=== PATIENT | female | born 1955 | race Caucasian/White ===

== ENCOUNTER 2024-10-24 14:19 | Outpatient (CLI) | payer MEDICARE, OTHER, SELFPAY ==
--- NOTE | ~2024-10-24 | DEXA_ITS ---
Bone Density Report Name: RAYMOND LOZANO Age: 69 Sex: Female Ethnicity: White Date of : 1955 Indication: postmenopausal; screening for osteoporosis; height loss; inflammatory bowel disease; Referring Provider: MARYBEL DONNELLY Study: Bone densitometry was performed. Exam Date: October 24, 2024 Accession number: [id number] Bone Density: Region BMD T-score Z-score Classification AP Spine(L1-L4) 0.885 -1.5 0.7 Osteopenia Femoral Neck (Left) 0.720 -1.2 0.7 Osteopenia Total Hip (Left) 0.804 -1.1 0.4 Osteopenia Femoral Neck (Right) 0.752 -0.9 1.0 Normal Total Hip (Right) 0.887 -0.4 1.1 Normal Total Hip Mean 0.846 -0.8 0.8 Normal World Health Organization criteria for BMD impression classify patients as: Normal (T-score at or above -1.0), Osteopenia (T-score between -1.0 and -2.5), or Osteoporosis (T-score at or below -2.5). 10-year Fracture Risk(1): Major Osteoporotic Fracture 9.1% Hip Fracture 1.1% Reported Risk Factors: [place] (), Neck BMD=0.720, BMI=27.2 (1) FRAX(R) Version 3.08. Fracture probability calculated for an untreated patient. Fracture probability may be lower if the patient has received treatment. Clinical Information Provided by Patient: Has the following medical conditions: Inflammatory bowel diseases Patient maximum height was 65.0 Menopause Age: 57 Does not regularly consume dairy products Drinks caffeinated beverages Onset of menses at age 11 Number of children 2 Impression: The patient has low bone mass, based on the Total Spine T-score. The patient has an estimated ten-year risk of hip fracture of 1.1% and an estimated ten-year risk of major fracture of 9.1%, based on the WHO FRAX algorithm. Discussion: BONE DENSITY IS LOW AT ONE OR MORE SKELETAL SITES. This patient's lowest T-score is low at one or more skeletal sites. It meets the World Health Organization's (WHO) criteria for ?low bone mass? (T-score between -1.0 and -2.5). The patient's 10-year risk of fracture as calculated by FRAX is less than the threshold where pharmacological therapy is recommended by the National Osteoporosis Foundation (NOF). However, all treatment decisions require clinical judgment and consideration of individual patient factors, including patient preferences, comorbidities, previous drug use, risk factors not captured in the FRAX model (e.g., frailty, falls, vitamin D deficiency, increased bone turnover, interval significant decline in bone density) and possible under or overestimation of fracture risk by FRAX. The patient should follow a healthful lifestyle (good nutrition with adequate calcium and vitamin D, and appropriate weight-bearing exercise). Follow-Up: Consider repeating this study in 2 to 3 years to reassess this patient's status, or sooner if there is some new clinical indication. Reported by: WILLIAM on 10/24/2024 3:00:00 PM. Reviewed, dictated and finalized at location A.
--- OUTSIDE RECORDS SUMMARY | 2024-10-24 14:27 | XMS_ITS | Encounter Summary ---
Author Organization [facility] Address [address] [facility] [place] [address] Care Team Providers Care Dinkey Engine Firer/Fireman Name Role Phone Chacorta Lobo DO Primary Care Provider Encounter Details Date Type Department Care Team (Late st Contact Info) Description 11/07/2019 Lab Requisition [facility] DermPath Lab [address] [facility], [facility] [place] [address] Laney Corey DO [address] [facility] 3 [place] [address] Social History Tobacco Use Types Packs/Day Years Used Date Smoking Tobacco: Never Assessed Comments Unknown Sex and Gender Information Value Date Recorded Sex Assigned at Not on file Legal Sex Female 6:27 PM HAND LEATHER TRIMMER Gender Identity Not on file Sexual Orientation Not on file documented as of this encounter Plan of Treatment Not on file documented as of this encounter Procedures Procedure Name Priority Date/Time Associated Diagnosis Comments DERMATOPATHOLOGY Routine 08/15/2019 12:0 0 AM CDT documented in this encounter Results * DERMATOPATHOLOGY (08/15/2019 12:00 AM CDT) Case Report Dermatopathology Report Case: [id number] Authorizing Provider: Laney Corey DO Collected: 08/15/2019 12:00 AM Ordering Location: [facility] Care DermPath Lab Received: 11/07/2019 09:37 AM Pathologist: Lilly Steven MD Specimen: Skin, right upper arm 0 12:17 PM CDT DERMATOPATHOLOGY LABORATORY Final Diagnosis Specimen A. SKIN, right upper arm: LICHEN PLANUS-LIKE KERATOSIS (BENIGN LICHENOID KERATOSIS) (L82.1) 0 12:17 PM CDT DERMATOPATHOLOGY LABORATORY at 1217 CDT Clinical History R/O BCC 0 12:17 PM CDT DERMATOPATHOLOGY LABORATORY Gross Description Specimen A: Received is one formalin filled container labeled with the patient's name and designated right upper arm. The specimen consists of a shave biopsy measuring 6x6x1 mm. Jar 0. 0 12:17 PM CDT DERMATOPATHOLOGY LABORATORY Microscopic Description Specimen A. SKIN, right upper arm: The epidermis is mildly acanthotic. There is a lichenoid infiltrate with vacuolar changes of basilar keratinocytes and scattered necrotic keratinocytes. 0 12:17 PM CDT DERMATOPATHOLOGY LABORATORY Comment The epidermis is mildly acanthotic. There is a lichenoid infiltrate with vacuolar changes of basilar keratinocytes and scattered necrotic keratinocytes. 0 12:17 PM CDT DERMATOPATHOLOGY LABORATORY Disclaimer An external and internal positive and negative controls are appropriate for the histochemical, immunohistochemical and immunofluorescence stain(s) in this case (if any), except where stated explicitly. The performance characteristics of the stain(s) cited in this report were developed and its performance characteristic determined by the Dermatopathology Laboratory at [facility], directed by Dr. Anuradha Steven. These tests need not be, and therefore are not, approved by the [place] Food and Drug Administration. The tests are used for clinical purposes. Billing Codes Specimen Charges Stain Charges 10156 1 0 12:17 PM CDT DERMATOPATHOLOGY LABORATORY Embedded Images 0 12:17 PM CDT DERMATOPATHOLOGY LABORATORY Pathology/Cytolog y TISSUE SPECIMEN FROM SKIN / Unknown 08/15/2019 11/07/2019 9:37 AM CDT us Laney Corey DO LAB - PATHOLOGY/CYTOLOGY ORDERABLES Final Result DERMATOPATHOLOGY LABORATORY [facility] - Department of Dermatology [facility] [address], [facility] [place] [phone] documented in this encounter Visit Diagnoses Not on filedocumented in this encounter Care Teams Dinkey Engine Firer/Fireman Relationship Specialty Start Date End Date Chacorta Lobo DO PCP - General 08/23/19 documented as of this encounter
--- OUTSIDE RECORDS SUMMARY | 2024-10-24 14:27 | XMS_ITS | Encounter Summary ---
Author Organization [facility] Address [address] [place] [address] Care Team Providers Care Private Mortgage Banker Safe Name Role Phone Ely Wright BEAD PREPARER Primary Care Provider Unavaila Criselda Mckeon BEAD PREPARER Primary Care Provider [phone] Whitney Redd BEAD PREPARER Primary Care Provider [phone] Clinton Mcginnis MD Unavailable [phone] Encounter Details Date Type Department Care Team (Latest Contact Info) Description 09/23/2022 Revel Toucht Message Enc [facility] Medical Group Family Medicine - [address] [address] Ely Wright, BEAD PREPARER endocrenologist referrel Social History Tobacco Use Types Packs/Day Years Used Date Smoking Tobacco: Never Smokeless Tobacco: Never Alcohol Use Standard Drinks/Week Comments Never 0 (1 standard drink = 0.6 oz pur e alcohol) AUDIT-C Answer Date Recorded Frequency of Alcohol Consumption Never 10/30/2018 Average Number of Drinks Not on file 019 Frequency of Binge Drinking Not on file 10/10 PHQ-2 Answer Date Recorded PHQ-2 Score - If the patient scores above 3, please move on to questions 3-9 0 01/14/2022 Comments No Sex and Gender Information Value Date Recorded Sex Assigned at Female 05/04/2024 11:08 AM POWERTRAIN ENGINEER Legal Sex Female 8:01 PM CDT Gender Identity Not on file Sexual Orientation Not on file COVID-19 Exposure Response Date Recorded In the last 10 days, have yo u been in contact with someone who was confirmed or suspected to have Coronavirus/COVID-19? No / Unsure 09/07/2022 12:45 PM CDT documented as of this encounter Functional Status * RETIRED Are you deaf or do you have serious difficulty hearing Answer Date of Assessment Author Status No 11/15/2020 11:02 PM CDT Acti ve * RETIRED Are you blind or do you have serious difficulty seeing, even when wearing glasses? Answer Date of Assessment Author Status No 11/15/2020 11:02 PM CDT Acti ve * Do you have serious difficulty walking or climbing stairs? Answer Date of Assessment Author Status Yes 11/15/2020 11:02 PM CDT Konstantin Sultana RN Active * Do you have difficulty dressing or bathing? Answer Date of Assessment Author Status Yes 11/15/2020 11:02 PM CDT Konstantin Sultana RN Active * Because of a physical, mental, or emotional condition, do you have difficulty doing errands alone such as visiting a doctor's office or shopping? Answer Date of Assessment Author Status No 11/15/2020 11:02 PM CDT Konstantin Sultana RN Active documented as of this encounter Mental Status * Because of a physical, mental, or emotional condition, do you have serious difficulty concentrating, remembering, or making decisions? Answer Entry Date Author Status No 11/15/2020 11:02 PM CDT Konstantin Sultana RN Active documented in this encounter Progress Notes * Joselo Parra MA - 09/23/2022 1:22 PM CDT Sent pt a Aivo message wit [facility] information for Dr. Kirk to call and schedule appt. Advised to call office if any other issues or concerns. documented in this encounter Plan of Treatment Upcoming Encounters Date Type Department Care Team (Late st Contact Info) Description 11/01/2024 10:20 AM CDT Office Visit [facility] Medical Group Family [address] [address] Whitney Redd NP [address] [place] [phone] documented as of this encounter Goals Goal Patient Goal Type Associated Problems Recent Progress Patient-Stated? Author Safety Patient/family will have appropriate support at home upon discharge Krystle Tian, RN documented as of this encounter Visit Diagnoses Not on filedocumented in this encounter Additional Health Concerns Assessment Noted Time PHQ-9 Depression Total Score: 2 12/11/19 1:56 PM CDT documented as of this encounter Care Teams Private Mortgage Banker Safe Relationship Specialty Start Date End Date Ely Wright, BEAD PREPARER PCP - General NURSE PRACTITIONER 01/12/22 09/07/23 Criselda Hyman, BEAD PREPARER [address] [place] [address] PCP - General Nurse Practitioner Family 09/08/2310/09 Whitney Redd NP 1 [place] [address] PCP - General NURSE PRACTITIONER 10/21/23 Clinton Mcginnis MD Three [address] [address] Consulting Physician CLINICAL CARDIAC ELECTROPHYSIOLOGY 02/14/24 documented as of this encounter
--- OUTSIDE RECORDS SUMMARY | 2024-10-24 14:27 | XMS_ITS | Encounter Summary ---
Author Organization [facility] Address [address] [facility] [place] [address] Care Team Providers Care Resawyer Name Role Phone Chacorta Lobo DO Primary Care Provider Encounter Details Date Type Department Care Team (Late st Contact Info) Description 01/30/2019 Lab Requisition [facility] DermPath Lab [address] [facility], [facility] [place] [address] Laney Corey DO [address] [facility] 3 [place] [address] Social History Tobacco Use Types Packs/Day Years Used Date Smoking Tobacco: Never Assessed Comments Unknown Sex and Gender Information Value Date Recorded Sex Assigned at Not on file Legal Sex Female 6:27 PM TECHNOLOGY APPLICATIONS ENGINEER Gender Identity Not on file Sexual Orientation Not on file documented as of this encounter Plan of Treatment Not on file documented as of this encounter Procedures Procedure Name Priority Date/Time Associated Diagnosis Comments DERMATOPATHOLOGY Routine 01/29/2019 12:0 0 AM CDT documented in this encounter Results * DERMATOPATHOLOGY (01/29/2019 12:00 AM CDT) Case Report Dermatopathology Report Case: [id number] Authorizing Provider: Laney Corey DO Collected: 01/29/2019 12:00 AM Ordering Location: [facility] Care DermPath Lab Received: 01/30/2019 12:18 PM Pathologist: Kamryn Gxaiola MD Specimen: Skin, left thigh 9 8:07 PM CDT DERMATOPATHOLOGY LABORATORY Final Diagnosis Specimen A. 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 GA vs IGD vs granuloma vs drug. 9 8:07 PM CDT DERMATOPATHOLOGY LABORATORY Gross Description Specimen A: Received is one formalin filled container labeled with the patient's name and designated left thigh. The specimen consists of a punch measuring 8u7c0ru, bisected. Jar 0. 9 8:07 PM CDT DERMATOPATHOLOGY LABORATORY Microscopic Description Specimen A. SKIN, left thigh: There are lymphocytes around blood vessels and scattered histiocytes dissecting between collagen bundles. Additional deeper sections were obtained and reviewed. 9 8:07 PM CDT DERMATOPATHOLOGY LABORATORY Disclaimer An external and internal positive and negative controls are appropriate for the histochemical, immunohistochemical and immunofluorescence stain(s) in this case (if any), except where stated explicitly. The performance characteristics of the stain(s) cited in this report were developed and its performance characteristic determined by the Dermatopathology Laboratory at [facility], directed by Dr. Anuradha Steven. These tests need not be, and therefore are not, approved by the [place] Food and Drug Administration. The tests are used for clinical purposes. Billing Codes Specimen Charges Stain Charges 42434 1 9 8:07 PM CDT DERMATOPATHOLOGY LABORATORY Embedded Images 9 8:07 PM CDT DERMATOPATHOLOGY LABORATORY Pathology/Cytolog y TISSUE SPECIMEN FROM SKIN / Unknown 01/29/2019 01/30/2019 12:18 PM CDT Laney Corey DO LAB - PATHOLOGY/CYTOLOGY ORDERABLES Final Result DERMATOPATHOLOGY LABORATORY [facility] - Department of Dermatology [address] [place] [address], [address] [place] [address], [facility] [phone] documented in this encounter Visit Diagnoses Not on filedocumented in this encounter Care Teams Resawyer Relationship Specialty Start Date End Date Chacorta Lobo DO PCP - General 08/23/19 documented as of this encounter
--- OUTSIDE RECORDS SUMMARY | 2024-10-24 14:27 | XMS_ITS | Encounter Summary ---
Author Organization [facility] Address [address] [facility] [place] [address] Care Team Providers Care Camera Machinist Name Role Phone Chacorta Lobo DO Primary Care Provider Encounter Details Date Type Department Care Team (Late st Contact Info) Description 02/02/2024 Lab Requisition [facility] - DermPath Lab [address] [facility], [place] [address] Laney Corey DO [address] [facility] 3 [place] [address] Social History Tobacco Use Types Packs/Day Years Used Date Smoking Tobacco: Never Assessed Comments Unknown Sex and Gender Information Value Date Recorded Sex Assigned at Not on file Legal Sex Female 6:27 PM 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 5 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 Gender Identity Not on file Sexual Orientation Not on file documented as of this encounter Plan of Treatment Not on file documented as of this encounter Procedures Procedure Name Priority Date/Time Associated Diagnosis Comments DERMATOPATHOLOGY Routine 02/02/2024 8:30 AM CDT documented in this encounter Results * DERMATOPATHOLOGY (02/02/2024 8:30 AM CDT) Case Report Dermatopathology Report Case: [id number] Authorizing Provider: Laney Corey DO Collected: 02/02/2024 08:30 AM Ordering Location: [facility] - Received: 02/03/2024 06:31 AM DermPath Lab Pathologist: Marlene Varghese MD Specimen: Skin, right mid arm 12:31 PM CDT DERMATOPATHOLOGY LABORATORY Final Diagnosis Specimen A. SKIN, right mid arm: BASAL CELL CARCINOMA (C44.612) NOT PRESENT AT MARGIN DERMAL SCAR (L90.5) 12:31 PM CDT DERMATOPATHOLOGY LABORATORY at 1231 CDT Clinical History BCC Check margins/prior biopsy 12:31 PM CDT DERMATOPATHOLOGY LABORATORY Gross Description Specimen A: Received is one formalin filled container labeled with the patient's name and designated right mid arm. The specimen consists of a non-oriented ellipse of skin measuring 47g89b0 mm. The epidermal surface is unremarkable. The margin is inked green. The 12 o'clock and 6 o'clock tips are submitted in cassette 1. The remainder of the ellipse is serially sectioned and submitted in cassette 2-3. Jar 0. 12:31 PM CDT DERMATOPATHOLOGY LABORATORY Microscopic Description Specimen A. SKIN, right mid arm: Within the dermis there are aggregates of basaloid cells with a high nuclear to cytoplasmic ratio and peripheral palisading. This lesion is not present at the margin of the specimen. There are fibroblasts and collagen bundles oriented parallel to the skin surface with elongated blood vessels, some of which are oriented perpendicular to the skin surface. 12:31 PM CDT DERMATOPATHOLOGY LABORATORY Disclaimer An external and internal positive and negative controls are appropriate for the histochemical, immunohistochemical and immunofluorescence stain(s) in this case (if any), except where stated explicitly. The performance characteristics of the stain(s) cited in this report were developed and its performance characteristic determined by the Dermatopathology Laboratory at [facility], directed by Dr. Anuradha Steven. These tests need not be, and therefore are not, approved by the [place] Food and Drug Administration. The tests are used for clinical purposes. Billing Codes Specimen Charges Stain Charges 72605 1 12:31 PM CDT DERMATOPATHOLOGY LABORATORY Embedded Images 12:31 PM CDT DERMATOPATHOLOGY LABORATORY Pathology/Cytolo gy TISSUE SPECIMEN FROM SKIN / Unknown 02/02/2024 8:30 AM CDT 02/03/2024 6:31 AM CDT us Laney Corey DO LAB - PATHOLOGY/CYTOLOGY ORDERABLES Final Result DERMATOPATHOLOGY LABORATORY [facility] - Department of Dermatology [facility] Specialized Medicine [facility] [facility], 3rd Floor [address] [phone] documented in this encounter Visit Diagnoses Not on filedocumented in this encounter Care Teams Camera Machinist Relationship Specialty Start Date End Date Chacorta Lobo DO PCP - General 08/23/19 documented as of this encounter
--- OUTSIDE RECORDS SUMMARY | 2024-10-24 14:27 | XMS_ITS | Encounter Summary ---
Author Organization [facility] Address [address] [place] [address] Care Team Providers Care Radiator Core Tester Name Role Phone Ely Wright PROPERTY ADMINISTRATOR Primary Care Provider Unavaila Criselda Mckeon PROPERTY ADMINISTRATOR Primary Care Provider [phone] Redd PROPERTY ADMINISTRATOR Primary Care Provider [phone] Clinton Mcginnis MD Unavailable [phone] Encounter Details Date Type Department Care Team (Late st Contact Info) Description 03/17/2022 BOOM! Entertainmentt Message Enc [facility] Medical Group Family Medicine [address] [address] Ely Wright NP cold/ Social History Tobacco Use Types Packs/Day Years [...] Sex Assigned at Female 05/04/2024 11:08 AM BILL OF LADING CLERK Legal Sex Female 8:01 PM CDT Gender Identity Not on file Sexual Orientation Not on file COVID-19 Exposure Response Date Recorded In the last 10 days, have yo u been in contact with someone who was confirmed or suspected to have Coronavirus/COVID-19? No / Unsure 03/19/2022 9:48 AM BILL OF LADING CLERK documented as of this encounter Functional Status [...] documented in this encounter Progress Notes * oJselo Parra MA - 03/19/2022 10:57 AM CST Pt was seen on a video visit today 03/19/22 with Ely. OF LADING CLERK documented in this encounter Plan of Treatment Upcoming Encounters Date Type Department Care Team (Late st Contact Info) Description 11/01/2024 10:20 AM CDT Office Visit [facility] Medical Group Family Medicine - [place] [address] [place] [phone] [place] [address] documented as of this encounter Goals Goal Patient Goal Type Associated Problems Recent Progress Patient-Stated? Author Safety Patient/family will have appropriate support at home upon discharge Krystle Tian RN documented as of this encounter Visit Diagnoses Not on filedocumented in this encounter Additional Health Concerns Assessment Noted Time PHQ-9 Depression Total Score: 2 12/11/19 22 1:56 PM CDT documented as of this encounter Care Teams Radiator Core Tester Relationship Specialty Start Date End Date Ely Wright, PROPERTY ADMINISTRATOR PCP - General NURSE PRACTITIONER 01/12/22 09/07/23 Criselda Hyman, PROPERTY ADMINISTRATOR [address] [place], [place] [phone] PCP - General Nurse Practitioner Family 09/08/2310/09 Whitney Redd NP 1 [place], [place] [phone] PCP - General NURSE PRACTITIONER 10/21/23 Clinton Mcginnis MD Three [facility] [address] [place], [place] [phone] Consulting Physician CLINICAL CARDIAC ELECTROPHYSIOLOGY 02/14/24 documented as of this encounter
--- OUTSIDE RECORDS SUMMARY | 2024-10-24 14:27 | XMS_ITS | Clinical Summary ---
Author Organization [facility] Address [address] [place] [phone] Care Team Providers Care Polysomnography Technologist Name Role Phone Doug Tamez MD Primary Care Provider + Allergies Active Allergy Reactions Criticality Noted Date Comments Alcohol Diarrhea,Stomach upset Low 11/15/2020 RED wine, pt reports the tannins cause this Chocolate Diarrhea,Stomach upset,Swelling Medium 05/14/2013 Tongue and hand swelling Lactase Diarrhea,Stomach upset Low 11/27/2018 per [facility] Lactuca Virosa Nausea And Vomiting Low 11/15/2020 Magnesium Diarrhea High 01/04/2019 Magnesium Aspartate Diarrhea Low 01/04/2019 Shellfish Stomach upset Low 05/14/2013 Tilactase Diarrhea,Stomach upset Low 11/27/2018 Wild Lettuce Unknown Low 11/19/2020 Medications loratadine (CLARITIN) 10 mg tablet 1 Active triamcinolone (KENALOG) 0.1 % cream APPLY CREAM EXTERNALLY TWICE DAILY TO CHEST AND LEGS 1 Active Synthroid 125 mcg tablet Take 1 tablet (125 mcg total) by mouth early intervention specialist before breakfast 1 Active Additional Information Patient not taking.Reported on 08/06/[address] (PROTONIX) 40 mg EC tablet Take 1 tablet (40 mg total) by mouth daily 1 Active tacrolimus (PROTOPIC) 0.1 % ointment 1 Active thiamine (VITAMIN B-1) 100 mg tablet 1 Active thiamine (VITAMIN B1) 100 mg tablet 1 tablet (100 mg total) 1 Active Synthroid 100 mcg tablet 3 Active doxycycline 100 mg tablet Take 1 tablet/capsule (100 mg total) by mouth 2 (two) times a day 3 Active cyanocobalamin (Vitamin B-12) 1,000 mcg tablet Take 1 tablet (1,000 mcg total) by mouth daily Active butalbital-aspi rin-caffeine (FIORINAL) 50-325-40 mg capsule TAKE 1 CAPSULE BY MOUTH EVERY 6 HOURS NEEDED FOR HEADACHE 3 Active amLODIPine (NORVASC) 5 mg tablet 3 Active vitamin E 100 unit capsule Take 1 capsule (100 Units total) by mouth daily Active amLODIPine (NORVASC) 10 mg tablet 4 Active Synthroid 75 mcg tablet 4 Active Synthroid 88 mcg tablet 4 Active topiramate (TOPAMAX) 100 mg tabletIndicatio ns:Migraine Prevention Take 0.5 tablets (50 mg total) by mouth daily AND 1 tablet (100 mg total) nightly. 135 tablet 3 5 08/07/19 26 Active ZOLMitriptan (ZOMIG) 5 mg tabletIndicatio ns:Migraine Take 1 tablet (5 mg total) by mouth daily as needed for migraine 9 tablet 11 5 Active meclizine (ANTIVERT) 25 mg tabletIndicatio ns:Vertigo Take 1 tablet (25 mg total) by mouth 3 (three) times a day as needed for dizziness 30 tablet 5 Active Active Problems Problem Noted Date Diagnosed Date Status post placement of implantable loop record er 09/09/2022 Overview (08/17/2023): BHAVIK CHAMBERLAIN IMPLANTED 09/08/22 FOR SYNCOPE Syncope and collapse 09/09/2022 Overview (08/17/2023): BHAVIK CHAMBERLAIN IMPLANTED 09/08/22 FOR SYNCOPE 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 for migraine prophylaxis and zolmitriptan 5 mg b.i.d. p.r.n. for abortive breakthrough with good tolerability and success. Both medications have been renewed as presently prescribed. She will follow-up in neurology clinic in a year. Assessment & Plan (10/23/2020 10:15 AM CDT): Patient continues on topiramate for migraine prophylaxis and zolmitriptan for abortive breakthrough. This regimen seems to be working well for her. She is not in need of refill of medication at this time. Assessment & Plan (05/13/2020 2:34 PM VENDOR QUALITY SUPERVISOR): Patient is a former patient of [facility] being treated for migraine without aura. She is on migraine prophylaxis with amitriptyline and topiramate. She uses zolmitriptan 5 mg b.i.d. p.r.n. for abortive breakthrough and Fiorinal 1 q.i.d. p.r.n. rescue. This regimen seems to work well for her. I have renewed her medication as previously prescribed and will see her back in 1 year. Elevated blood pressure read ing without diagnosis of hypertension 12/26/2017 Anxiety 01/12/2017 Chronic sinusitis 01/12/2017 Chronic lumbar pain 06/23/2016 Scoliosis 06/23/2016 Granuloma annulare 10/01/2013 Mixed hyperlipidemia 02/26/2013 Foot pain 07/03/2012 Gastroesophageal reflux disease 01/13/2012 Essential hypertriglyceridemia 01/13/2012 Familial lipoprotein lipase deficiency 2 Obesity 01/13/2012 Acquired hypothyroidism 01/11/2012 Near syncope 01/11/2012 Resolved Problems Problem Noted Date Diagnosed Date Resolved Date Parkinsonism 10/23/2020 11/27/2020 Assessment & Plan (02/19/2021 10:22 AM VENDOR QUALITY SUPERVISOR): Patient was hospitalized at [facility] in taken off Sinemet as well as multiple other medications with improvement in gait and resolution of parkinsonian features. 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 Observation for the neurological standpoint would be appropriate. Assessment & Plan (10/23/2020 10:15 AM CDT): Patient presents with several month history of recurrent falls and clinical evidence of parkinsonism manifest as prominent gait festination in increased generalized tone. She has no tremor at this time or bradykinesia. I will place her on a trial of Sinemet 25/100 t.i.d. for her parkinsonian symptoms. I will see her back in 3 months for reassessment. Encounters Date Type Department Care Team Description 08/06/2024 11:00 AM CDT Office Visit [facility] Neurology [address] [place] [phone] Margarita Champion NP Migraine without aura and without status migrainosus, not intractable from Last 3 Months Immunizations Immunization Administration Dates Next Due ZOSTER LIVE 01/12/2015 Surgical History Surgery Date Site/Laterality Comments TONSILLECTOMY GALLBLADDER SURGERY Medical History Medical History Date Comments Depression Hypertension High cholesterol Dysphagia Family History Medical History Relation Name Comments No Known Problems Brother Arthritis Father Heart murmur Father Hypertension Father Arthritis Mother Hypertension Mother Hypothyroidism Mother Relation Name Status Comments Brother Alive Father Mother Social History Tobacco Use Types Packs/Day Years Used Date Smoking Tobacco: Never Smokeless Tobacco: Never Comments Unknown Sex and Gender Information Value Date Recorded Sex Assigned at Not on file Legal Sex Female 8:57 PM VENDOR QUALITY SUPERVISOR Gender Identity Not on file Sexual Orientation Not on file Obstetrics History Last Filed Vital Signs Vital Sign Reading Time Taken Comments Blood Pressure 120/70 08/06/2024 10:52 AM CDT Pulse 78 08/06/2024 10:52 AM CDT Temperature 36.2 C (97.1 F) 08/16/2022 9:08 AM CDT Respiratory Rate 20 08/06/2024 10:52 AM CDT Oxygen Saturation 100% 08/06/2024 10:52 AM CDT Inhaled Oxygen Concentration - - Weight 70.3 kg (155 lb) 08/06/2024 10:52 AM CDT Height 165.1 cm (5' 5) 08/06/2024 10:52 AM CDT Body Mass Index 25.79 08/06/2024 10:52 AM CDT Plan of Treatment Health Maintenance Due Date Last Done Comments Colon Cancer Screening-Colonoscopy 1955 Depression Screening 1955 Hepatitis C Screening 1955 Hepatitis B Screening 02/29/1972 Pneumococcal vaccine 65+ (1 of 1 - PCV) 02/29/2004 Zoster Vaccine (2 of 3) 03/09/2015 01/12/2015 Well Visit 65+ 2019 Fall Risk Assessment 12/01/2021 12/01/2020 Covid-19 Vaccine (2023-2 5 season) 2023 04/02/2021, 09/09/2020, 08/12/2020 Osteoporosis Screening-Bone Density Scan 01/07/2024 01/06/2022 Influenza Vaccine (Season Ended) 2024 Breast Cancer Screening-Mammogram 01/17/2025 01/18/2024, 01/18/2024, 01/06/2022, Additional history exists DTaP/Tdap/Td Vaccine (2 - Td or Tdap) 06/22/2034 06/22/2024, 12/24/[address] [place] [address] MEDICARE FOR LIFE MEDICARE FOR LIFE MEDICARE FOR LIFE Advance Directives For more information, please contact: [phone] * Full Code (Latest Code Status on File) Date Activated Date Inactivated Comments 11/28/2020 7:53 AM 12/01/2020 7:20 PM * Full Code Date Activated Date Inactivated Comments 11/19/2020 9:32 PM 11/28/2020 7:53 AM Care Teams Polysomnography Technologist Relationship Specialty Start Date End Date Doug Tamez MD [address] [place] [address] PCP - General Family Medicine 02/19/21
--- OUTSIDE RECORDS SUMMARY | 2024-10-24 14:27 | XMS_ITS | Encounter Summary ---
Author Organization [facility] Address [address] [place] [address] Care Team Providers Care Child Care Assistant Name Role Phone Chacorta Lobo DO Primary Care Provider Encounter Details Date Type Department Care Team (Late st Contact Info) Description 01/27/2023 Telephone [facility] - Centralized Scheduling [address] [place] [address] Unknown, Provider Social History Tobacco Use Types Packs/Day Years Used Date Smoking Tobacco: Never Assessed Comments Unknown Sex and Gender Information Value Date Recorded Sex Assigned at Not on file Legal Sex Female 6:27 PM ASSIGNMENT DESK EDITOR Gender Identity Not on file Sexual Orientation Not on file documented as of this encounter Miscellaneous Notes * Telephone Encounter - Billy Zambrano - 01/27/2023 3:30 PM CDT [facility] called and states to disregard referral to ENDO. documented in this encounter Plan of Treatment Not on file documented as of this encounter Visit Diagnoses Not on filedocumented in this encounter Care Teams Child Care Assistant Relationship Specialty Start Date End Date Chacorta Lobo DO PCP - General 08/23/19 documented as of this encounter
--- OUTSIDE RECORDS SUMMARY | 2024-10-24 14:27 | XMS_ITS | Referral Summary ---
Author Organization [facility] Address [address] [place] [phone] Care Team Providers Care Simplex Operator Name Role Phone Doug Tamez MD Primary Care Provider + Encounters Date Type Department Care Team Description 08/06/2024 11:00 AM CDT Office Visit [facility] Medical Group Neurology [address] [place] [address] [address] [place] [phone] Margarita Champion NP Migraine without aura and without status migrainosus, not intractable from Last 3 Months Allergies Active Allergy Reactions Criticality Noted Date Comments Alcohol Diarrhea,Stomach upset Low 11/15/2020 RED wine, pt reports the tannins cause this Chocolate Diarrhea,Stomach upset,Swelling Medium 05/14/2013 Tongue and hand swelling Lactase Diarrhea,Stomach upset Low 11/27/2018 per [facility] Lactuca Virosa Nausea And Vomiting Low [...] 1 tablet (125 mcg total) by mouth spiritual counselor before breakfast 1 Active Additional Information Patient [...] implantable loop record er 09/09/2022 Overview (08/17/2023): MDT LNQ22 IMPLANTED 09/08/22 FOR SYNCOPE Syncope and collapse 09/09/2022 Overview (08/17/2023): BHAVIK LNQ22 IMPLANTED 09/08/22 FOR SYNCOPE 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 [...] time. Assessment & Plan (05/13/2020 2:34 PM FISH CHECKER): Patient is a former patient of [facility] being treated for migraine without aura. [...] 11/27/2020 Assessment & Plan (02/19/2021 10:22 AM FISH CHECKER): Patient was hospitalized at [facility] in taken off Sinemet as well as [...] her back in 3 months for reassessment. Immunizations Immunization Administration Dates Next Due ZOSTER LIVE 01/12/2015 Social History Tobacco Use Types Packs/Day Years Used Date Smoking Tobacco: Never Smokeless Tobacco: Never Comments Unknown Sex and Gender Information Value Date Recorded Sex Assigned at Not on file Legal Sex Female 8:57 PM FISH CHECKER Gender Identity Not on file Sexual Orientation Not on file Last Filed Vital Signs Vital Sign Reading [...] 08/06/2024 10:52 AM CDT Plan of Treatment Not on file Insurance MEDICARE FOR LIFE [place] [address] MEDICARE [facility] FOR LIFE Advance Directives For more information, please contact: [phone] * Full Code (Latest Code Status on File) Date Activated Date Inactivated Comments 11/28/2020 7:53 AM 12/01/2020 7:20 PM * Full Code Date Activated Date Inactivated Comments 11/19/2020 9:32 PM 11/28/2020 7:53 AM Care Teams Simplex Operator Relationship Specialty Start Date End Date Doug [place] [address] [place] [address] PCP - General Family Medicine 02/19/21
--- OUTSIDE RECORDS SUMMARY | 2024-10-24 14:27 | XMS_ITS | Encounter Summary ---
Author Organization [facility] Address [address] [facility] [place] [address] Care Team Providers Care Plc Engineer Name Role Phone Chacorta Lobo DO Primary Care Provider Encounter Details Date Type Department Care Team (Late st Contact Info) Description 01/11/2024 Lab Requisition [facility] - DermPath Lab [address] [facility] [place] [phone] Laney Corey DO [address] [facility] [address] [place] [address] Social History Tobacco Use Types Packs/Day Years Used Date Smoking Tobacco: Never Assessed Comments Unknown Sex and Gender Information Value Date Recorded Sex Assigned at Not on file Legal Sex Female 6:27 PM DEMAND GENERATION MANAGER Gender Identity Not on file Sexual Orientation Not on file documented as of this encounter Plan of Treatment Not on file documented as of this encounter Procedures Procedure Name Priority Date/Time Associated Diagnosis Comments DERMATOPATHOLOGY Routine 01/11/2024 10:1 1 AM CDT documented in this encounter Results * DERMATOPATHOLOGY (01/11/2024 10:11 AM CDT) Case Report Dermatopathology Report Case: [id number] Authorizing Provider: Laney Corey DO Collected: 01/11/2024 10:11 AM Ordering Location: [facility] - Received: 01/11/2024 04:19 PM DermPath Lab Pathologist: Sepideh Nelson MD Specimens: A) - Skin, right mid arm B) - Skin, frontal hairline 1:17 PM CDT DERMATOPATHOLOGY LABORATORY Final Diagnosis Specimen A. SKIN, right mid arm: BASAL CELL CARCINOMA, SUPERFICIAL MULTIFOCAL (C44.612) Specimen B. SKIN, frontal hairline: BASAL CELL CARCINOMA, NODULAR TYPE (C44.41) 1:17 PM CDT DERMATOPATHOLOGY LABORATORY at 1317 CDT Clinical History R/o NMSC 1:17 PM CDT DERMATOPATHOLOGY LABORATORY Gross Description Specimen A: Received is one formalin filled container labeled with the patient's name and designated right mid arm. The specimen consists of a shave biopsy measuring 7x6x1 mm. Jar 0. Specimen B: Received is one formalin filled container labeled with the patient's name and designated frontal hairline. The specimen consists of a shave biopsy measuring 5x5x1 mm. Jar 0. 1:17 PM CDT DERMATOPATHOLOGY LABORATORY Microscopic Description Specimen A. SKIN, right mid arm: Attached to the undersurface of the epidermis, there are small aggregates of basaloid cells with a high nuclear to cytoplasmic ratio and peripheral palisading. Specimen B. SKIN, frontal hairline: Within the dermis there are aggregates of basaloid cells with a high nuclear to cytoplasmic ratio and peripheral palisading. 1:17 PM CDT DERMATOPATHOLOGY LABORATORY Disclaimer An external and internal positive and negative controls are appropriate for the histochemical, immunohistochemical and immunofluorescence stain(s) in this case (if any), except where stated explicitly. The performance characteristics of the stain(s) cited in this report were developed and its performance characteristic determined by the Dermatopathology Laboratory at [facility], directed by Dr. Anuradha Steven. These tests need not be, and therefore are not, approved by the [place] Food and Drug Administration. The tests are used for clinical purposes. Billing Codes Specimen Charges Stain Charges 07807 96939 1 1 1:17 PM CDT DERMATOPATHOLOGY LABORATORY Embedded Images 1:17 PM CDT DERMATOPATHOLOGY LABORATORY Pathology/Cytology TISSUE SPECIMEN FROM SKIN / Unknown 01/11/2024 10:11 AM CDT 01/11/2024 4:19 PM CDT Miscellaneous samples (specimen) TISSUE SPECIMEN FROM SKIN / Unknown 01/11/2024 10:11 AM CDT 01/11/2024 4:19 PM CDT us Laney Corey DO LAB - PATHOLOGY/CYTOLOGY ORDERABLES Final Result DERMATOPATHOLOGY LABORATORY [facility] - Department of Dermatology [address] [phone] documented in this encounter Visit Diagnoses Not on filedocumented in this encounter Care Teams Plc Engineer Relationship Specialty Start Date End Date Chacorta Lobo DO PCP - General 08/23/19 documented as of this encounter
--- OUTSIDE RECORDS SUMMARY | 2024-10-24 14:27 | XMS_ITS | Encounter Summary ---
Author Organization [facility] Address [address] [place] [address] Care Team Providers Care Screen Tender Name Role Phone Ely Wright SYSTEM MANAGER Primary Care Provider Unavaila Criselda Mckeon SYSTEM MANAGER Primary Care Provider [phone] Whitney Redd SYSTEM MANAGER Primary Care Provider [phone] Clinton Mcginnis MD Unavailable [phone] Encounter Details Date Type Department Care Team (Late st Contact Info) Description 01/26/2022 Pathfult Message Enc [facility] Medical [facility] Family Medicine [address] [phone] Eyl Wright, DOMINIK nutrinist Social History Tobacco Use Types Packs/Day Years [...] Sex Assigned at Female 05/04/2024 11:08 AM TOOL BUILDER Legal Sex Female 8:01 PM CDT Gender Identity Not on file Sexual Orientation Not on file COVID-19 Exposure Response Date Recorded In the last 10 days, have yo u been in contact with someone who was confirmed or suspected to have Coronavirus/COVID-19? No / Unsure 01/14/2022 12:31 PM CDT documented as of this encounter [...] Date Author Status No 11/15/2020 11:02 PM NITAT Konstantin Sultana RN Active documented in this encounter Progress Notes * Garrick Akers RN - 01/28/2022 12:48 PM CDT FYI * Garrick Akers RN - 01/27/2022 8:02 AM CDT Per the referral center, Dr. Orlando is also listed under nutrition. They have a call to their officeto verify that this is correct. * Garrick Akers RN - 01/27/2022 7:42 AM CDT I'm reaching out to the referral center. I see the cancelled bariatrics referral that was routed toDr. Orlando, but the nutrition one was as well. * Ely Wright NP - 01/26/2022 4:02 PM CDT Yes some how she was put in for bariatrics so I put in for a new referral when I saw her 2 weeks ago. * Garrick Akers RN - 01/26/2022 3:55 PM CDT It looks like pt was referred to Dr. Orlando. 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 Her appt is 02/24/2022. Were you wanting her to see someone different? Thanks! * Ely Wright NP - 01/26/2022 2:03 PM CDT Please check on her hide dyer referral. It does not look like it has bee worked. * Garrick Akers RN - 01/26/2022 11:43 AM CDT Please see note. Looks like the nutrition referral has an appt date attached at 02/24/2022. Thanks documented in this encounter Plan of Treatment Upcoming Encounters Date Type Department Care Team (Late st Contact Info) Description 11/01/2024 10:20 AM CDT Office Visit [facility] Medical Group Family Medicine - [place] [phone] Whitney Redd NP [address] [place] [address] documented as of this encounter Goals Goal Patient Goal Type Associated Problems Recent Progress Patient-Stated? Author Safety Patient/family will have appropriate support at home upon discharge General Krystle Montemayor RN documented as of this encounter Visit Diagnoses Not on filedocumented in this encounter Additional Health Concerns Assessment Noted Time PHQ-9 Depression Total Score: 2 12/11/19 22 1:56 PM CDT documented as of this encounter Care Teams Screen Tender Relationship Specialty Start Date End Date Ely Wright, SYSTEM MANAGER PCP - General NURSE PRACTITIONER 01/12/22 09/07/23 Criselda Hyman, SYSTEM MANAGER [address] [place] [address] PCP - General Nurse Practitioner Family 09/08/2310/09 Whitney Redd NP [address] [place], [place] [phone] PCP - General NURSE PRACTITIONER 10/21/23 Clinton Mcginnis MD [facility] [address] [place], [place] [id number] Consulting Physician CLINICAL CARDIAC ELECTROPHYSIOLOGY 02/14/24 documented as of this encounter
--- OUTSIDE RECORDS SUMMARY | 2024-10-24 14:27 | XMS_ITS | Encounter Summary ---
Author Organization [facility] Address [address] [place] [address] Care Team Providers Care Shoe Repairer Apprentice Name Role Phone Doug Tamez MD Primary Care Provider [phone] Nam Castillo DO Primary Care Provider [phone] Ely Wright PERSONAL FINANCIAL PLANNER Primary Care Provider Unavaila Criselda Mckeon PERSONAL FINANCIAL PLANNER Primary Care Provider [phone] Whitney Redd PERSONAL FINANCIAL PLANNER Primary Care Provider [phone] Clinton Mcginnis MD Unavailable [phone] Encounter Details Date Type Department Care Team (Late st Contact Info) Description 06/02/2021 MyChart Message Enc [facility] Family Medicine - [address] [address] Doug Tamez MD [address] [address] vein study Social History Tobacco Use Types Packs/Day Years Used Date Smoking Tobacco: Never Smokeless Tobacco: Never Alcohol Use Standard Drinks/Week Comments Never 0 (1 standard drink = 0.6 oz pur e alcohol) AUDIT-C Answer Date Recorded Frequency of Alcohol Consumption Never 10/30/2018 Average Number of Drinks Not on file 019 Frequency of Binge Drinking Not on file 10/10 Comments No Sex and Gender Information Value Date Recorded Sex Assigned at Female 05/04/2024 11:08 AM LIBERAL ARTS TEACHER Legal Sex Female 8:01 PM CDT Gender Identity Not on file Sexual Orientation Not on file COVID-19 Exposure Response Date Recorded In the last 10 days, have yo u been in contact with someone who was confirmed or suspected to have Coronavirus/COVID-19? No / Unsure 05/18/2021 12:30 PM LIBERAL ARTS TEACHER documented as of this encounter Functional Status [...] documented in this encounter Progress Notes * Doug Tamez MD - 06/02/2021 1:57 PM CST Can just stop the blood thinner. No need to wean. No need for follow up for this issue unless pain and swelling start again RAL ARTS TEACHER * Alice Goddard MA - 06/02/2021 1:51 PM CST Please advise,thanks RAL ARTS TEACHER documented in this encounter Plan of Treatment Upcoming Encounters Date Type Department Care Team (Late st Contact Info) Description 11/01/2024 10:20 AM CDT Office Visit [facility] Family Medicine - [place] [address] [place] [id number] Whitney Redd, DOMINIK [address] [place] [address] documented as of this encounter Goals Goal Patient Goal Type Associated Problems Recent Progress Patient-Stated? Author Safety Patient/family will have appropriate support at home upon discharge General Krystle Montemayor RN documented as of this encounter Visit Diagnoses Not on filedocumented in this encounter Care Teams Shoe Repairer Apprentice Relationship Specialty Start Date End Date Doug Tamez MD PCP - General FAMILY PRACTICE 08/21/19 10/08/21 Nam Castillo DO PCP - General FAMILY PRACTICE 10/09/21 01/11/22 Ely Wright, PERSONAL FINANCIAL PLANNER PCP - General NURSE PRACTITIONER 01/12/22 09/07/23 Criselda Hyman PERSONAL FINANCIAL PLANNER [address] [place] [address] PCP - General Nurse Practitioner [facility] 09/08/2310/09 Whitney Redd NP [address] [place] [address] PCP - General NURSE PRACTITIONER 10/21/23 Clinton Mcginnis MD Three [facility] [address] [place] [address] Consulting Physician CLINICAL CARDIAC ELECTROPHYSIOLOGY 02/14/24 documented as of this encounter
--- OUTSIDE RECORDS SUMMARY | 2024-10-24 14:27 | XMS_ITS | Encounter Summary ---
Author Organization [facility] Address [address] [place] [address] Care Team Providers Care Breaker Mechanic Name Role Phone Doug Tamez MD Primary Care Provider [phone] Nam Castillo DO Primary Care Provider [phone] Ely Wright MARKETING DATABASE COORDINATOR Primary Care Provider Unavaila Criselda Mckeon MARKETING DATABASE COORDINATOR Primary Care Provider [phone] Whitney Redd MARKETING DATABASE COORDINATOR Primary Care Provider [phone] Clinton Mcginnis MD Unavailable [phone] Encounter Details Date Type Department Care Team (Late st Contact Info) Description 02/20/2020 Prep for Procedure [facility] [place] [address] Pablo Bethea MD [address] [place] [address] Social History Tobacco Use Types Packs/Day Years [...] Sex Assigned at Female 05/04/2024 11:08 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 No / Unsure 02/20/2020 7:23 AM MOTOR AND CONTROLS TESTER documented as of this encounter Plan of Treatment Upcoming Encounters Date Type Department Care Team (Late st Contact Info) Description 11/01/2024 10:20 AM CDT Office Visit [facility] Family Medicine - [place] [address] [place] [address] Whitney Redd NP [address] [place] [address] documented as of this encounter Results * PRE-SURGICAL/PRE-PROCEDURE CORONAVIRUS (COVID 19) (02/17/2020 11:15 AM MOTOR AND CONTROLS TESTER) CORONAVIRUS SARS COV 2 PCR (RESP) NOT DETECTED NOT DETECTED 02/18/2020 3:01 PM MOTOR AND CONTROLS TESTER [employer] [facility] Comment: A Not Detected (negative) test result for this test means that SARS- CoV-2 RNA was not present in the specimen above the limit of detection. A negative result does not rule out the possibility of COVID-19 and should not be used as the sole basis for treatment or patient management decisions. If COVID-19 is still suspected, based on exposure history together with other clinical findings, re-testing should be considered in consultation with public health authorities. Laboratory test results should always be considered in the context of clinical observations and epidemiological data in making a final diagnosis and patient management decisions. Please review the Fact Sheets and FDA authorized labeling available for health care providers and patients using the following websites: https://www.[employer].com/home/Covid-19/HCP/Quest[employer]D/fact- sheet.html https://www.[employer].com/home/Covid-19/Patients/ Quest[employer]D/fact-sheet.html This test has been authorized by the FDA under an Emergency Use Authorization (EUA) for use by authorized laboratories. Due to the current public health emergency, [employer] [facility] [employer]) is receiving a high volume of samples from a wide variety of swabs and media for COVID-19 testing. In order to serve patients during this public health crisis, samples from appropriate clinical sources are being tested. Negative test results derived from specimens received in non-commercially manufactured viral collection and transport media, or in media and sample collection kits not yet authorized by FDA for COVID-19 testing should be cautiously evaluated and the patient potentially subjected to extra precautions such as additional clinical monitoring, including collection of an additional specimen. Methodology: Nucleic Acid Amplification Test (NAAT) includes RT-PCR or TMA Additional information about COVID-19 can be found at the [employer] website: www.PeerPong.WinAd/Covid19. Test performed at [employer] [facility] [employer] [address] [place] [address] Director: ALDA IZQUIERDO DO,MPH FIRST TEST YES 02/17/2020 1:30 PM MOTOR AND CONTROLS TESTER [facility] EMPLOYED IN HEALTHCARE NO 02/17/2020 1:30 PM MOTOR AND CONTROLS TESTER [facility] SYMPTOMATIC DEFINED BY CDC NO 02/17/2020 1:30 PM MOTOR AND CONTROLS TESTER [facility] DATE OF SYMPTOM ONSET UNKNOWN 02/17/2020 1:33 PM MOTOR AND CONTROLS TESTER [facility] HOSPITALIZATION STATUS NO 02/17/2020 1:30 PM MOTOR AND CONTROLS TESTER [facility] PATIENT IN ICU NO 02/17/2020 1:30 PM MOTOR AND CONTROLS TESTER [facility] RESIDENT OF [facility] CARE NO 02/17/2020 1:30 PM MOTOR AND CONTROLS TESTER [facility] UNKNOWN 02/17/2020 1:33 PM MOTOR AND CONTROLS TESTER [facility] PATIENT'S RACE WHITE OR 02/17/2020 1:30 PM MOTOR AND CONTROLS TESTER [facility] ETHNICITY NONHISPANIC 02/17/2020 1:30 PM MOTOR AND CONTROLS TESTER [facility] SOURCE (QST) NASOPHARYNGEAL SWAB 02/17/2020 1:30 PM MOTOR AND CONTROLS TESTER [facility] NASOPHARYNGEAL SWAB / Unknown 02/17/2020 11:15 AM MOTOR AND CONTROLS TESTER us Pablo Bethea MD MICROBIOLOGY - GENERAL FERMIN PARSON Final Result [facility] [address] [place] [address], [employer] [facility] [address] [place] [address], documented in this encounter Visit Diagnoses Diagnosis Preoperative testing- Primary Preoperative examination, unspecified documented in this encounter Care Teams Breaker Mechanic Relationship Specialty Start Date End Date Doug Tamez MD PCP - General FAMILY PRACTICE 08/21/19 10/08/21 Nam Castillo DO PCP - General FAMILY PRACTICE 10/09/21 01/11/22 Ely Wright MARKETING DATABASE COORDINATOR PCP - General NURSE PRACTITIONER 01/12/22 09/07/23 Criselda Hyman, DOMINIK [address] [place] [address] PCP - General Nurse Practitioner Family 09/08/2310/09 Whitney Redd NP [address] [place] [address] PCP - General NURSE PRACTITIONER 10/21/23 Clinton Mcginnis MD Three [facility] [address] [place], [place] [address] Consulting Physician CLINICAL CARDIAC ELECTROPHYSIOLOGY 02/14/24 documented as of this encounter
--- OUTSIDE RECORDS SUMMARY | 2024-10-24 14:27 | XMS_ITS | Patient Health Record ---
Author Organization [facility] Address [address] [place], [place] [address] Care Team Providers Care Mophead Sewer Name Role Phone DANUTA LEE Unavailable [phone] Chacorta Lobo Unavailable Unavailable Reason For Referral No Information Medications Medication SIG (Take, Route, Frequency, Duration) Notes Start Date End Date Status Telmisartan 80 MG Oral Tablet ORAL telmisartan 80 MG Oral TabletOriginal Medicationtelmisartan 80 MG Oral Tablet *Reorder from [facility] for eRx and Interaction Alerts* 6 Active acetaminophen 325 MG / butalbital 50 MG / caffeine 40 MG / codeine phosphate 30 MG Oral Capsule ORAL acetaminophen 325 MG / butalbital 50 MG / caffeine 40 MG / codeine phosphate 30 MG Oral CapsuleOriginal Medicationacetaminophen 325 MG / butalbital 50 MG / caffeine 40 MG / codeine phosphate 30 MG Oral Capsule 6 Active Atenolol 100 MG Oral Tablet ORAL atenolol 100 MG Oral TabletOriginal Medicationatenolol 100 MG Oral Tablet *Reorder from [facility] for eRx and Interaction Alerts* 6 Active Topiramate 100 MG Oral Tablet ORAL topiramate 100 MG Oral TabletOriginal Medicationtopiramate 100 MG Oral Tablet *Reorder from [facility] for eRx and Interaction Alerts* 6 Active colchicine 0.6 MG Oral Tablet [Colcrys] ORAL colchicine 0.6 MG Oral Tablet [Colcrys]Original Medicationcolchicine 0.6 MG Oral Tablet [Colcrys] *Reorder from [facility] for eRx and Interaction Alerts* 3 Active levothyroxine sodium 0.137 MG Oral Tablet [Synthroid] ORAL levothyroxine sodium 0.137 MG Oral Tablet [Synthroid]Original Medicationlevothyroxine sodium 0.137 MG Oral Tablet [Synthroid] *Reorder from [facility] for eRx and Interaction Alerts* 6 Active amitriptyline hydrochloride 100 MG Oral Tablet ORAL amitriptyline hydrochloride 100 MG Oral TabletOriginal Medicationamitriptyline hydrochloride 100 MG Oral Tablet *Reorder from [facility] for eRx and Interaction Alerts* 6 Active amlodipine 5 MG Oral Tablet ORAL amlodipine 5 MG Oral TabletOriginal Medicationamlodipine 5 MG Oral Tablet *Reorder from [facility] for eRx and Interaction Alerts* 6 Active Medrol Dosepak ORAL Medrol DosepakOr iginal MedicationMedrol Dosepak *Reorder from [facility] for eRx and Interaction Alerts* 3 Active Plan Of Treatment No Information Insurance Providers Payer Name Payer Address Payer Phone Subscriber Number Group Number Insured Name Patient Relationship to Insured Coverage Start Date Coverage End Date [facility] ATTN CLAIMS [address] [place] [address] [id number] TREVOR LOZANO Spouse - patient is the spouse of the insured [facility] [address] [place] [address] [id number] TREVOR LOZANO Spouse - patient is the spouse of the insured
--- OUTSIDE RECORDS SUMMARY | 2024-10-24 14:27 | XMS_ITS | Clinical Summary ---
Author Organization [facility] Address [address] [facility] [place] [address] Care Team Providers Care Display Maker Name Role Phone Chacorta Lobo DO Primary Care Provider Source Comments [email or web address],non-owned Affiliates and Associated Physician Practices is amultiple site organization consisting of ambulatory clinics and hospital sitesin [place], [place], [place] and [place]. This disclosure is being madepursuant to the Care Everywhere program and may not contain all information available regarding this patient. 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 Gender Identity Not on file Sexual Orientation Not on file Plan of Treatment Health Maintenance Due Date Last Done Comments BONE DENSITY TESTING 1954 COLOGUARD (AGES 45-75) - COLON CA SCREENING 1954 COLON MONITORING 1954 COLONOSCOPY - COLON CA SCREENING 1954 CT COLONOGRAPHY - COLON CA SCREENING 1954 Colorectal Cancer Screening 1954 FIT - COLON CA SCREENING 1954 FLEX SIG - COLON CA SCREENING 1954 LIPID TESTING 1954 MAMMOGRAM 1954 MEDICARE AWV 12 MONTHS 1954 HEPATITIS C SCREENING 02/24/1972 DTAP/TDAP/TD VACCINES (1 - Tdap) 1973 PNEUMOCOCCAL VACCINE 50+ (1 of 1 - PCV) 02/29/2004 ZOSTER VACCINE (1 of 2) 02/29/2004 COVID-19 VACCINE ( - 2023- season) 2023 01/07/2022, 04/02/2021, 09/09/2020, Additional history exists DEPRESSION SCREENING 04/11/2024 INFLUENZA VACCINE (#1) 2024 Respiratory Syncytial Virus (RSV) Vaccine Pt: or over 60 yrs (1 - 1-dose 75+ series) 2029 HEPATITIS B VACCINE Aged Out No longe r eligible based on patient's age to complete this topic HIB VACCINE Aged Out No longer eligi ble based on patient's age to complete this topic HPV VACCINE Aged Out No longer eligi ble based on patient's age to complete this topic MENINGOCOCCAL (Group B) VACCINE SHARED DECISION-MAKING Aged Out No longer eligible based on patient's age to complete this topic MENINGOCOCCAL GROUPS A/C/Y/W VACCINE Aged Out No longer eligible based on patient's age to complete this topic Insurance MEDICARE [facility] Address: [address] [place] [address] MEDICARE Care Teams Display Maker Relationship Specialty Start Date End Date Chacorta Lobo DO PCP - General 08/23/19
--- OUTSIDE RECORDS SUMMARY | 2024-10-24 14:27 | XMS_ITS | Continuity of Care Document ---
Author Name [facility] Organization [facility] Care Team Providers Care Exam Proctor Name Role Phone [facility] Unavailable Unavailable Medications Combined list of outpatient medications from [facility] and [facility] facilities.Medications provided include 1) outpatient medications from the last 15 months, and 2) patient-reported medications. Medication Details Route Status Patient Instructions Prescription Expires Prescription Number Last Dispense Date Ordering Provider Order Date Order Qty Source amLODIPine (U/D) 10 MG ORAL TAB Be careful if taking OTCs.Fawad e or use exactly as directed . 08/21/2024 [id number] 4 2023 90 [employer] [facility] ([facility] [place]) amLODIPine 10 mg tablet See Instruct marybeth, # 90 EA, 0 total refill(s ), Hard Stop Complet ed 08/23/2024 5 2024 90.0 [facility] Pharmac y amLODIPine 10 mg tablet 10 mg, Oral, Daily, # 90 EA, 0 total refill(s ), Hard Stop Oral (given by mouth) Complet ed 02/17/2024 4 2023 90.0 Ambulat ory Pharmac y amLODIPine 10 mg tablet See Instruct marybeth, # 90 EA, 0 total refill(s ), Hard Stop Complet ed 03/03/2024 4 2023 90.0 Ambulat ory Pharmac y amLODIPine 10 mg tablet 10 mg, Oral, Daily, # 90 EA, 0 total refill(s ), Hard Stop Oral (given by mouth) Discont inued 11/22/2023 4 2023 90.0 Ambulat ory Pharmac y amLODIPine 10 mg tablet = 1 tab(s), Oral, Daily, # 90 EA, 0 total refill(s ), Soft Stop Oral (given by mouth) Ordered 5 2024 90.0 Ambulat ory Pharmac y amLODIPine 5 mg tablet 5 mg, Oral, Daily, # 90 EA, 0 total refill(s ), Hard Stop Oral (given by mouth) Discont inued 11/22/2023 3 2023 90.0 Ambulat ory Pharmac y amLODIPine 5 mg tablet 5 mg, Oral, Daily, # 30 EA, 0 total refill(s ), Hard Stop Oral (given by mouth) Complet ed 11/11/2023 3 2023 30.0 Ambulat ory Pharmac y aspirin/but albital/caf feine 325 -50 -40 mg capsule See Instruct ions, # 30 EA, 0 total refill(s ), Hard Stop Complet ed 12/08/2023 4 2023 30.0 Ambulat ory Pharmac y aspirin/but albital/caf feine 325 -50 -40 mg capsule See Instruct ions, # 30 EA, 0 total refill(s ), Hard Stop Complet ed 11/08/2023 4 2023 30.0 Ambulat ory Pharmac y aspirin/but albital/caf feine 325 -50 -40 mg capsule = 1 cap(s), Oral, every 6 hr, # 30 EA, 0 total refill(s ), Hard Stop Oral (given by mouth) Complet ed 06/15/2023 3 2023 30.0 Ambulat ory Pharmac y aspirin/but albital/caf feine 325 -50 -40 mg capsule See Instruct ions, # 30 EA, 0 total refill(s ), Soft Stop Ordered 5 2024 30.0 Ambulat ory Pharmac y aspirin/but albital/caf feine 325 -50 -40 mg capsule See Instruct ions, # 30 EA, 0 total refill(s ), Hard Stop Complet ed 03/02/2024 4 2023 30.0 Ambulat ory Pharmac y aspirin/but albital/caf feine 325 -50 -40 mg capsule See Instruct ions, # 30 EA, 0 total refill(s ), Hard Stop Discont inued 11/29/2023 4 2023 30.0 Ambulat ory Pharmac y BUTALBITAL/ ASPIRIN 50-325MG + CAF PO CAP May cause drowsine ss.Do not drink alcohol. Federal law prohibit s transfer of prescrip tion. 02/18/2024 [id number] 4 2023 30 [employer] [facility] [place] ([facility] [place]) ciprofloxac in 250 mg tablet = 1 tab(s), Oral, BID, # 10 EA, 0 total refill(s ), Hard Stop Oral (given by mouth) Complet ed 05/23/2024 5 2024 10.0 Ambulat ory Pharmac y levothyroxi ne (Synthroid) 100 mcg tablet 100 mcg, Oral, # 30 EA, 0 total refill(s ), Hard Stop Oral (given by mouth) Complet ed 11/11/2023 3 2023 30.0 Ambulat ory Pharmac y levothyroxi ne (Synthroid) 100 mcg tablet See dose instruct ions in comments , # 30 EA, 1 total refill(s ), Acute Complet ed 08/04/2023 3 2023 30.0 Ambulat ory Pharmac y levothyroxi ne (Synthroid) 100 mcg tablet 100 mcg, Oral, every morning, # 90 EA, 0 total refill(s ), Hard Stop Oral (given by mouth) Discont inued 06/03/2023 3 2023 90.0 Ambulat ory Pharmac y levothyroxi ne (Synthroid) 75 mcg tablet 75 mcg, Oral, every morning, # 30 EA, 1 total refill(s ), Hard Stop Oral (given by mouth) Discont inued 06/21/2023 4 2023 30.0 Ambulat ory Pharmac y levothyroxi ne (Synthroid) 88 mcg tablet 88 mcg, Oral, Daily, # 90 EA, 0 total refill(s ), Hard Stop, YAW Oral (given by mouth) Discont inued 12/23/2023 4 2023 90.0 Ambulat ory Pharmac y levothyroxi ne (Synthroid) 88 mcg tablet = 1 tab(s), Oral, Daily, # 90 EA, 3 total refill(s ), Hard Stop, YAW Oral (given by mouth) Discont inued 07/09/2024 4 2024 90.0 Ambulat ory Pharmac y levothyroxi ne (Synthroid) 88 mcg tablet = 1 tab(s), Oral, Daily, # 90 EA, 3 total refill(s ), Soft Stop, YAW Oral (given by mouth) Ordered 5 2024 90.0 Ambulat ory Pharmac y levothyroxi ne (Synthroid) 88 mcg tablet 88 mcg, Oral, Daily, # 90 EA, 0 total refill(s ), Hard Stop Oral (given by mouth) Discont inued 09/30/2023 4 2023 90.0 Ambulat ory Pharmac y Levothyroxi ne Sodium (Levothroid ) Tablet 88 mcg Oral Take on empty stomach. Take with plenty of water.Be careful if taking OTCs.Fawad e or use exactly as directed . 09/25/2024 [id number] 4 2023 90 [employer] [facility] [place] ([facility] [place]) loratadine 10 mg oral tablet TAKE ONE TABLET DAILY, # 90 EA, 1 total refill(s ), Acute Complet ed 05/11/2023 3 2023 90.0 Ambulat ory Pharmac y meclizine 25 mg chew tablet See Instruct ions, # 30 EA, 0 total refill(s ), Hard Stop Complet ed 10/15/2023 3 2023 30.0 Ambulat ory Pharmac y meclizine 25 mg chew tablet See Instruct ions, # 30 EA, 0 total refill(s ), Hard Stop Complet ed 08/16/2024 4 2024 30.0 Ambulat ory Pharmac y meclizine 25 mg chew tablet = 1 tab(s), Oral, TID, PRN dizzines s, # 30 EA, 0 total refill(s ), Soft Stop Oral (given by mouth) Ordered 5 2024 30.0 Ambulat ory Pharmac y Meclizine Hydrochlori de (Antivert Eq) Tablet Chewable 25 mg Oral May cause drowsine ss.Chew tablets before swallowi ng. 08/16/2024 [id number] 4 [address] [facility]) pantoprazol e 40 mg oral delayed release tablet TAKE ONE TABLET DAILY, # 90 EA, 1 total refill(s ), Acute Complet ed 05/11/2023 3 2023 90.0 Ambulat ory Pharmac y TOPIRAMATE (topiramate ), 100 MG, TABLET, ORAL, [employer], 500 ea. BOTTLE Cancele d [id number] : 2023 0 Pharmac y [employer] y topiramate (U/D) 100 MG ORAL TAB Take with plenty of water.Do not drink alcohol. Take or use exactly as directed .Obtain advice for OTCs.May cause drowsine ss/dizzi ness.May impair driving. Swallow whole.Do not take if .Do not clare 08/16/2024 [id number] 4 2023 135 [facility] ([facility] [place]) topiramate [Exelan] 100 mg tablet See Instruct ions, # 135 EA, 1 total refill(s ), Hard Stop Complet ed 11/08/2023 4 2023 135.0 Ambulat ory Pharmac y topiramate [Exelan] 100 mg tablet See Instruct ions, # 135 EA, 3 total refill(s ), Hard Stop Complet ed 08/16/2024 4 2024 135.0 Ambulat ory Pharmac y topiramate [Exelan] 100 mg tablet See Instruct ions, Take one-half tablet by mouth daily and take 1 tablet nightly, # 135 EA, 3 total refill(s ), Soft Stop Ordered 5 2024 135.0 Ambulat ory Pharmac y topiramate [GSMS] 100 mg tablet See dose instruct ions in comments , # 180 EA, 3 total refill(s ), Acute Complet ed 02/15/2023 3 2022 180.0 Ambulat ory Pharmac y ZOLMitripta n 5 MG ORAL TAB Take or use exactly as directed .Obtain advice for OTCs.May cause drowsine ss/dizzi ness.Clare ck with your doctor before becoming . 08/16/2024 [id number] 4 2023 18 [facility] [place] ([facility] [place]) ZOLMitripta n 5 mg tablet (3EA) See dose instruct ions in comments , # 18 EA, 1 total refill(s ), Acute Complet ed 02/15/2023 3 2022 18.0 Ambulat ory Pharmac y ZOLMitripta n 5 mg tablet (3EA) See Instruct ions, # 18 EA, 3 total refill(s ), Hard Stop Complet ed 08/16/2024 5 2024 18.0 Ambulat ory Pharmac y ZOLMitripta n 5 mg tablet (3EA) = 1 tab(s), Oral, Daily, PRN migraine ., May repeat dose one time after 2 hours if needed. Max 10 mg/24 hours, # 9 EA, 11 total refill(s ), Soft Stop Oral (given by mouth) Ordered 5 2024 9.0 Ambulat ory Pharmac y Allergies, Adverse Reactions, Alerts Combined list of allergies from Department of Defense and Veterans Affairs facilities. It does not include entries that were removed or entered in error. Substance Category Reaction Severity Reaction type Status Date Reported Comments Source Magnesium Drug allergy Diarrhea Severe Active Ambulatory Pharmacy Procedures Combined list of: 1) Procedures from Department of Veterans Affairs facilities going back up to thelast 18 months, not all VA non-surgical procedures are included; 2) All procedures from the Department of Defense facilities. Procedure Procedure Type Code Date Perfomer Comments Sourc e No data available for this section Ambulatory P harmacy Social History Combined list of available smoking, tobacco, and other social history from Department of Defense and Veterans Affairs facilities. Social History Type Response Date Comment Sourc e This section is an empty social history section. DoD Assessment and Plan Combined list of future care activities from Department of Defense and Veterans Affairs facilities (e.g., assessment and plan notes, appointments, orders, and referrals). Additional future care activities may be listed in the Plan of Care section. Result Assessment and Plan Date Source Assessment and Plan No data available for this section 10/24/2024 Ambulatory Pharmacy Functional Status Combined list of recent functional and cognitive assessments recorded at [facility] ([facility] Functional Kemper Measurement (FIM) Scale: 1 = Total Assistance (Subject = 0% +), 2 = Maximal Assistance (Subject = 25% +), 3 = Moderate Assistance (Subject = 50% +), 4 = Minimal Assistance (Subject = 75% +), 5 = Supervision, 6 = Modified Kemper (Device), 7 = Complete Kemper (Timely, Safely). Assessment Date/Time Source Assessment Type Assessment Skill Assessment Score Assessment Details No data available for this section
--- OUTSIDE RECORDS SUMMARY | 2024-10-24 14:27 | XMS_ITS | Clinical Summary ---
Author Organization [facility] Address [address] [place] [id number] Care Team Providers Care Librarian Head Name Role Phone Ivania Annie DOMINIK Primary Care Provider [phone] Clinton Mcginnis MD Unavailable [phone] Allergies Active Allergy Reactions Criticality Noted Date Comments Chocolate Diarrhea,Swelling,GI Upset Low 05/14/2013 Tongue and hand swelling Magnesium Diarrhea Low 01/04/2019 Magnesium Aspartate Diarrhea Low 01/04/2019 Magnesium Gluconate Diarrhea High 10/28/2023 Shellfish Allergy GI Upset,Vomiting Low 05/14/2013 Tilactase Diarrhea,GI Upset Low 11/27/2018 Wild Lettuce Extract (Lactuca Virosa) Nausea and Vomiting Low 11/15/2020 Alcohol Diarrhea,GI Upset Low 11/15/2020 RED wine, pt reports the tannins cause this Medications topiramate 100 MG tabletIndications :Parkinson's disease ([facility]/HCC [facility]) Take 1 tablet (100 mg total) by mouth 2 (two) times daily. 90 tablet 1 1 Active ZOLMitriptan 5 MG Tab Take 1 tablet by mouth as needed. MAY REPEAT IN 2 HOURS NEEDED Active Biotin 10 MG Tab Take 1 tablet by mouth daily. Active vitamin B-12 (CYANOCOBALAMIN) (CYANOCOBALAMIN) 1000 mcg tablet Take 1 tablet (1,000 mcg total) by mouth daily. Active vitamin D3, cholecalciferol, 125 mcg capsule Take 1 capsule (125 mcg total) by mouth daily. Active vitamin E 100 UNIT capsule Take 1 capsule (100 Units total) by mouth daily. Active SYNTHROID 88 MCG tablet 4 Active amoxicillin-clavu lanate (AUGMENTIN) 875-125 MG tablet Take 1 tablet (875 mg total) by mouth 2 (two) times daily. 5 Active butalbital-aspiri n-caffeine (FIORINAL) 50-325-40 MG Cap capsuleIndication s:Chronic migraine without aura without status migrainosus, not intractable TAKE 1 CAPSULE BY MOUTH EVERY 6 HOURS NEEDED FOR HEADACHE 30 capsule 5 Active amLODIPine (NORVASC) 10 MG tabletIndications :Essential hypertension Take 1 tablet (10 mg total) by mouth daily. 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) 11/25/2020 Ataxia 11/22/2020 Dysphagia 11/19/2020 Overview (12/10/2021): Added automatically from request for surgery [id number] Near syncope 11/15/2020 Parkinsonism ([facility]) 10/23/2020 Overview (11/19/2020): Last Assessment & Plan: Patient presents with several month history of recurrent falls and clinical evidence of parkinsonism manifest as prominent gait festination in increased generalized tone. She has no tremor at this time or bradykinesia. I will place her on a trial of Sinemet 25/100 t.i.d. for her parkinsonian symptoms. I will see her back in 3 months for reassessment. Chronic migraine without aur a without status migrainosus, not intractable 05/31/2018 Elevated blood pressure read ing without diagnosis of hypertension 12/26/2017 Anxiety 01/12/2017 Chronic sinusitis 01/12/2017 Chronic lumbar pain 06/23/2016 Scoliosis 06/23/2016 Ganglion cyst of wrist 10/01/2013 Mixed hyperlipidemia 02/26/2013 Foot pain 07/03/2012 Esophageal reflux 01/13/2012 Essential hypertriglyceridemia 01/13/2012 Familial lipoprotein lipase deficiency 2 Acquired hypothyroidism 01/11/2012 Essential hypertension 01/11/2012 Resolved Problems Problem Noted Date Diagnosed Date Resolved Date Falls frequently 11/22/2020 08/17/2022 Infection due to yeast 05/31/201708/17 Cellulitis 05/19/2017 12/10/2021 URI, acute 05/19/2017 08/17/2022 Need for hepatitis C screening test 01/12/2017 11/24/2020 [place] hump 12/02/2014 12/10/2021 Obesity 01/13/2012 02/01/2024 Encounter for preventive health examination 01/11/2012 11/24/2020 Encounters Date Type Department Care Team Description 08/21/2024 Telephone [facility] Family Medicine - [place] [address] [place] [address] Annie Redd NP Medication Request from Last 3 Months Immunizations Immunization Administration Dates Next Due MODERNA COVID-19 (12+) MRNA, LNP-S, PF, 100 MCG/ 0.5 ML DOSE 09/09/2020,08/12/2020 MODERNA COVID-19 (PRINT OPERATOR STANISLAV UBALDO), MRNA, LNP-S, PF, 50 MCG/ 0.25 ML DOSE 04/02/2021 PFIZER COVID-19 BIVALENT (12 +) mRNA, LNP-S, PF, 30 MCG/0.3 ML DOSE 01/07/2022 Td (TDVAX) 12/24/2021 Tdap (Generic) 06/22/2024 Zoster (Zostavax) 32889 Unt/0.65Ml 01/12/2015 Family History Medical History Relation Comments No Known Problems Brother Miscarriages / Stillbirths Daughter 1 Mental Health Daughter 2 Arthritis Father Hypertension Father heart murmur Father when he had surgery to treat Breast Cancer Maternal Aunt Early Hearing Loss Mother missing an ea rdrum Heart Attack Mother Heart Disease Mother Hypertension Mother Relation Status Comments Brother Alive Daughter 1 Alive Daughter 2 Alive Father Maternal Aunt Mother Social History Tobacco Use Types Packs/Day Years Used Date Smoking Tobacco: Never Passive Smoke Exposure: Never Smokeless Tobacco: Never Tobacco Cessation:Counseling Given: No Alcohol Use Standard Drinks/Week Comments Never 0 (1 standard drink = 0.6 oz pur e alcohol) AUDIT-C Answer Date Recorded Frequency of Alcohol Consumption Never 10/30/2018 Average Number of Drinks Not on file 019 Frequency of Binge Drinking Not on file 10/10 PHQ-2 Answer Date Recorded Patient Health Questionnaire-2 Score 0 07/12/2024 Comments No Sex and Gender Information Value Date Recorded Sex Assigned at Female 05/04/2024 11:08 AM 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 Legal Sex Female 8:01 PM CDT Gender Identity Not on file Sexual Orientation Not on file Last Filed Vital Signs Vital Sign Reading Time Taken Comments Blood Pressure 155/68 07/02/2024 10:47 AM CDT Pulse 61 07/02/2024 10:47 AM CDT Temperature 36.2 C (97.1 F) 07/02/2024 10:47 AM CDT Respiratory Rate 20 07/02/2024 10:47 AM CDT Oxygen Saturation 100% 07/02/2024 10:47 AM CDT Inhaled Oxygen Concentration - - Weight 70.8 kg (156 lb) 07/02/2024 10:47 AM CDT Height 165.1 cm (5' 5) 07/02/2024 10:47 AM CDT Body Mass Index 25.96 07/02/2024 10:47 AM CDT Plan of Treatment Upcoming Encounters Date Type Department Care Team (Late st Contact Info) Description 11/01/2024 10:20 AM CDT Office Visit [facility] Family Medicine - [address] [address] Annie Redd NP [address] [place] [address] Health Maintenance Due Date Last Done Comments Pneumococcal Vaccine: 50+ Years (1 of 1 - PCV) 02/29/2004 RSV Immunization or 60+ Years (1 - Risk 60-74 years 1-dose series) 2014 Zoster Vaccines (2 of 3) 03/09/2015 01/12/2015 Annual Medicare Wellness Visit 2019 COVID-19 Vaccine (5 - season) 2023 01/07/2022, 04/02/2021, 09/09/2020, Additional history exists Mammogram Screening 01/17/2026 01/18/2024, 08/03/2022, 02/01/2022, Additional history exists Colorectal Cancer Screening Colonoscopy (10 Years) 10/03/2030 10/03/2020 DTaP, Tdap and Td Vaccines (2 - Td or Tdap) 06/22/2034 06/22/2024, 12/24/2021 Hepatitis C Completed 01/12/2017, 01/12/2017 Dexa Scan (General) Completed 01/06/2022 PHQ-2 (Physician Harleigh) Completed 07/12/2024 Meningococcal B Vaccine Aged Out No l onger eligible based on patient's age to complete this topic Meningococcal Vaccine Aged Out No cony mike eligible based on patient's age to complete this topic RSV Immunizations Under 20 Months Aged Out No longer eligible based on patient's age to complete this topic Goals Goal Patient Goal Type Associated Problems Recent Progress Patient-Stated? Author Safety Patient/family will have appropriate support at home upon discharge General No Krystle Dempsey RN Medical Devices Implanted Type Area Delimer Device Identifier Shelf Expiration Date Model / Serial / Lot Implantable Loop Recorder- [id number] Implanted:09/08 by Clinton Mcginnis MD (Quantity not on file) Explanted:Qty: 1 on 02/27/2024 by Clinton Mcginnis MD Implantable Loop Recorder [employer] CARDIAC RHYTHM AND HEART FAILURE - DIV M [id number] / [id number] / Procedures Procedure Name Priority Date/Time Associated Diagnosis Comments MG SCREENING W TAMMY TORIE DIGI Routine 01/18/2024 8:07 AM CDT Encounter for screening mammogram for malignant neoplasm of breast BONE DENSITY/DEXA Routine 01/06/2022 9:3 4 AM CDT Menopause HEPATITIS C ANTIBODY Routine 01/12/2017 10:55 AM CDT from Last 3 Months or Most Recently Relevant to Health Maintenance Results * MG SCREENING W TAMMY TORIE DIGI (01/18/2024 8:07 AM CDT) Anatomical Region Laterality Modality Breast Bilateral Mammography 01/18/2024 8:11 AM CDT Impressions 01/18/2024 8:12 AM CDT IMPRESSION: No suspicious mammographic findings. Recommendation: 1. Routine Screening, Bilateral Assessment: ACR BI-RADS 2 - BENIGN FINDING(S) Ordered By: ANNIE REDD Interpreted By: Nolan Fontenot, 01/18/2024 8:11 AM Narrative 01/18/2024 8:12 AM CDT [facility] [address] [place] [address] Examination: Screening bilateral mammogram Exam Date/Time: 01/18/2024 8:06 AM Clinical history: No current complaints. Comparison: 08/03/2022 Technique: Digital screening mammography of both breasts was performed. Breast tomosynthesis acquisitions were obtained and reviewed. This study was read with the assistance of a computer-aided detection system. Tissue density: There are scattered areas of fibroglandular density. Findings: No suspicious masses, malignant appearing calcifications, skin thickening or other abnormalities are present. No significant change from the prior exam. us Annie Redd SENIOR PRODUCT INTEGRITY ENGINEER MAMMO Final Result * BONE DENSITY/DEXA (01/06/2022 9:34 AM CDT) Anatomical Region Laterality Modality Bone Mammography 01/06/2022 10:0 8 AM CDT Impressions 01/06/2022 10:09 AM CDT IMPRESSION: WHO Classification: Osteopenia. RECOMMENDATIONS: All patients should ensure an adequate intake of dietary calcium and vitamin D. The NOF recommend adults under the age of 50 need 1000 mg of calcium and 400-800 IU of vitamin D daily. Effective therapy for the prevention and treatment of osteoporosis include bisphosphonates. Follow-up: People with diagnosed cases of osteoporosis or at high risk for fracture should have regular bone mineral density test. For patients eligible for Medicare, routine testing is allowed once every 2 years. Testing frequency can be increased to one year for patients who have rapidly progressing disease, those who are receiving or discontinuing medical therapy to restore bone mass, or have additional risk factors. Referred By: LIAT CASTILLO Interpreted By: Dalton Whiteside MD, 01/06/2022 10:08 AM Narrative 01/06/2022 10:09 AM CDT EXAMINATION: BONE DENSITY/DEXA INDICATIONS: Menopause; osteoporosis screening COMPARISON: None TECHNIQUE: DEXA bone minimal density evaluation was performed in the AP projection over the lumbar spine and over both hips in the AP projection utilizing standard imaging techniques. ASSESSMENT: The BMD measured at the AP spine L1-L4 is 0.896 g/cm? with a T-score of -1.4. The BMD measured at the left femoral neck is 0.763 g/cm? with a T-score of -0.8. The BMD measured at the left hip is 0.854 g/cm? with a T-score of -0.7. The BMD measured at the right femoral neck is 0.763 g/cm? with a T-score of - 0.8. The BMD measured at the right hip is 0.866 g/cm? with a T-score of -0.6. FRAX 10-year fracture risk: Major Osteoporotic Fracture: 8.0% Hip Fracture: 0.6% Procedure Note Dalton Whiteside MD - 01/06/2022 EXAMINATION: BONE DENSITY/DEXA INDICATIONS: Menopause; osteoporosis screening COMPARISON: None TECHNIQUE: DEXA bone minimal density evaluation was performed in the APprojection over the lumbar spine and over both hips in the AP projectionutilizing standard imaging techniques. ASSESSMENT: The BMD measured at the AP spine L1-L4 is 0.896 g/cm? with a T-score of-1.4. The BMD measured at the left femoral neck is 0.763 g/cm? with a T-score of-0.8. The BMD measured at the left hip is 0.854 g/cm? with a T-score of -0.7. The BMD measured at the right femoral neck is 0.763 g/cm? with a T-scoreof -0.8. The BMD measured at the right hip is 0.866 g/cm? with a T-score of -0.6. FRAX 10-year fracture risk: Major Osteoporotic Fracture: 8.0% Hip Fracture: 0.6% IMPRESSION: WHO Classification: Osteopenia. RECOMMENDATIONS: All patients should ensure an adequate intake of dietary calcium andvitamin D. The NOF recommend adults under the age of 50 need 1000 mg ofcalcium and 400-800 IU of vitamin D daily. Effective therapy for theprevention and treatment of osteoporosis include bisphosphonates. Follow-up: People with diagnosed cases of osteoporosis or at high risk for fractureshould have regular bone mineral density test. For patients eligible forMedicare, routine testing is allowed once every 2 years. Testing frequencycan be increased to one year for patients who have rapidly progressingdisease, those who are receiving or discontinuing medical therapy torestore bone mass, or have additional risk factors. Referred By: LIAT CASTILLO Interpreted By: Dalton Whiteside MD, 01/06/2022 10:08 AM us Liat Castillo DO DEXA Final Result * HEPATITIS C ANTIBODY (01/12/2017 10:55 AM CDT) Pathologist [facility] HEPATITIS C AB NON-REACTIVE TESTING PERFORMED AT [facility] [address] [place] [id number] NR [employer] TO EPIC CONVERSION 01/12/2017 10:5 5 AM CDT 01/12/2017 10:55 AM CDT Narrative [employer] TO EPIC CONVERSION - 01/13/2017 5:04 PM CDT Result Communication: Call patient with results us Chacorta Lobo DO LABORATORY Final Result [facility] TO EPIC CONVERSION from Last 3 Months or Most Recently Relevant to Health Maintenance Insurance MEDICARE [facility] Advance Directives * Full Code (Latest Code Status on File) Date Activated Date Inactivated Comments 11/15/2020 7:57 PM 11/19/2020 11:10 PM Care Teams Librarian Head Relationship Specialty Start Date End Date Annie Redd NP [address] [place] [address] PCP - General NURSE PRACTITIONER 10/21/23 Clinton Mcginnis MD Three [facility]. [address] [place] [address] Consulting Physician CLINICAL CARDIAC ELECTROPHYSIOLOGY 02/14/24
== END 2024-10-24 14:20 | disposition home or self-care (01) ==
LOC: ANHIMG 14:22
PROVIDERS: PCP Internal Medicine; Visit Provider Internal Medicine
DX: M85.89 Other specified disorders of bone density and structure, multiple sites (principal); Z78.0 Asymptomatic menopausal state
CPT/HCPCS: 77080